=== PATIENT | female | born 1955 | race American Indian/Alaskan Native ===

== ENCOUNTER 2018-11-18 12:34 | Emergency (ER) | payer MEDICARE ==
--- NOTE | 2018-11-18 13:16 | Emergency Department Report ---
HPI - General Time Seen by Provider: 11/18/18 12:43 - HPI HPI: Room 10 The patient is a 62-year-old female presenting with a chief complaint of pelvis pain and suicidal ideation. The patient is very emotionally labile and difficult to obtain history from. Patient states she feels confused at times and thinks she is mixing up her medications. Patient also states she's had pe lvic pain intermittently for a long time. The patient admits to suicidal ideation for "a long time." When asked if she did anything to try to harm her self the patient states "I don't know." Location: [See above] Duration: [See above] Quality: [See above] Severity: [See above] Modifying factors: [see above] Context: [see above] Mode of transportation: [not driving] ED Past Medical Hx - Past Medical History Hx Hypertension: Yes Hx CVA: Yes Hx Diabetes: Yes Additional medical history: Coronary artery disease - Surgical History Past Surgical History?: No - Family History Family history: no significant - Social History Smoking Status: Never Smoker Substance Use Type: None (denies illicit drug use) ED Review of Systems ROS: Stated complaint: PELVIS PAIN/PSYCH Other details as noted in HPI Constitutional: no symptoms reported Eyes: denies: eye pain ENT: denies: throat pain Respiratory: no symptoms reported Cardiovascular: denies: chest pain Endocrine: no symptoms reported Gastrointestinal: abdominal pain Genitourinary: denies: dysuria Musculoskeletal: denies: back pain Neurological: denies: headache Physical Exam - Physical Exam Physical Exam: GENERAL: The patient is well-developed well-nourished female lying on stretcher emotionally labile. [] HEENT: Normocephalic. Atraumatic. Extraocular motions are intact. Patient has moist mucous membranes. NECK: Supple. Trachea midline CHEST/LUNGS: Clear to auscultation. There is no respiratory distress noted. HEART/CARDIOVASCULAR: Regular. There is no tachycardia. There is no gallop rub or murmur. ABDOMEN: Abdomen is soft, nontender. Patient has normal bowel sounds. There is no abdominal distention. SKIN: There is no rash. There is no edema. There is no diaphoresis. NEURO: The patient is awake, alert, and oriented. The patient is cooperative. The patient has no focal neurologic deficits. The patient has normal speech. Cranial nerves II-12 grossly intact, no drift MUSCULOSKELETAL: There is no evidence of acute injury. ED Medical Decision Making - Lab Data Result diagrams: 11/18/18 13:21 11/18/18 13:21 - Radiology Data Radiology results: report reviewed (CT head, CT abdomen pelvis), image reviewed (CT head, CT abdomen and pelvis) [address] [address] Cat Scan Report Signed Patient: KELVIN TINSLEY MR#: [id number] : 1955 Acct:[id number] Age/Sex: 62 / F ADM Date: 11/18/18 Loc: ED Attending Dr: Ordering Physician: TOYA SULLIVAN MD Date of Service: 11/18/18 Procedure(s): CT head/brain wo con Accession Number(s): [id number] cc: TOYA SULLIAVN MD CT HEAD WITHOUT CONTRAST: HISTORY: Confusion. TECHNIQUE: Sequential CT images without contrast. FINDINGS: Images obtained show bilateral prominence of the sulci and ventricles. There are no abnormal intra- or extra-axial blood or fluid collections. There are no focal masses or evidence of mass effect. The toure white matter differentiation appears within normal limits. Regions of periventricular decreased attenuation are consistent with microangiopathic ischemic disease. The posterior fossa structures including the fourth ventricle, cerebellum, and brainstem appear normal. IMPRESSION: Evidence of atrophy and microangiopathic ischemic disease. No acute intracranial process noted. Transcribed By: TTR Dictated By: MILKA BURGESS JR, MD Electronically Authenticated By: MILKA BUREGSS JR, MD Signed Date/Time: 11/18/181450 DD/ 50 TD/TT: 11/18/[address] [address] Cat Scan Report Signed Patient: KELVIN TINSLEY MR#: [id number] : 1955 Acct:[id number] Age/Sex: 62 / F ADM Date: 11/18/18 Loc: ED Attending Dr: Diony dorman Physician: TOYA SULLIVAN MD Date of Service: 11/18/18 Procedure(s): CT abdomen pelvis w con Accession Number(s): [id number] cc: TOYA SULLIVAN MD CT ABDOMEN PELVIS WITH CONTRAST: HISTORY: Lower abdominal pain. COMPARISON: none. TECHNIQUE: Helical CT in 1.25mm intervals following IV contrast. Sagittal and coronal reconstructions. FINDINGS: Lung bases: Normal. Liver: Normal. Biliary system: The gallbladder is contracted and contains a few calcified gallstones. No biliary dilatation is identified. Pancreas: Normal. Spleen: Normal. Kidneys/ureters/bladder: Within normal limits. 1 cm cyst in the superior left kidney is noted. Adrenal glands: 2 cm benign appearing left adrenal nodule is identified. The right adrenal gland is normal. Aorta: Mild distal calcifications. No aneurysm. Intestines: Within normal limits given no oral contrast was administered. Appendix: Normal. Pelvic viscera: Normal. Ascites: None. Adenopathy: None. Musculoskeletal: Intact. Mild thoracolumbar spondylosis. IMPRESSION: No acute process is identified in the abdomen or pelvis. Left renal cyst. Left adrenal nodule which probably represents an adrenal adenoma. Transcribed By: TTR Dictated By: MILKA BURGESS JR, MD Electronically Authenticated By: MILKA BURGESS JR, MD Signed Date/Time: 11/18/18 1501 DD/ 1458 TD/TT: 11/18/18 1501 - Differential Diagnosis UTI, diverticulitis, suicide ideation Critical care attestation.: If time is entered above; I have spent that time in minutes in the direct care of this critically ill patient, excluding procedure time. ED Disposition Clinical Impression: Suicidal ideation Disposition: DC/TX-65 PSY HOSP/PSY UNIT Is pt being admited?: No Does the pt Need Aspirin: No Condition: Stable Time of Disposition: 15:57 (awaiting acceptance)
[2018-11-18 13:47] LABS: Basophils # (Auto) 0.1 K/mm3 (0.0-0.1); Basophils % (Auto) 1.2 % (0.0-1.8); Eosinophils # (Auto) 0.1 K/mm3 (0.0-0.4); Eosinophils % (Auto) 0.8 % (0.0-4.3); Hematocrit 37.8 % (30.3-42.9); Hemoglobin 12.4 gm/dl (10.1-14.3); Lymphocytes # (Auto) 1.3 K/mm3 (1.2-5.4); Lymphocytes % (Auto) 18.4 % (13.4-35.0); Mean Corpuscular HGB Conc 33 % (30-34); Mean Corpuscular Volume 87 fl (79-97); Monocytes # (Auto) 0.7 K/mm3 (0.0-0.8); Monocytes % (Auto) 10.2 % (0.0-7.3); Platelet Count 374 K/mm3 (140-440); Red Blood Count 4.35 M/mm3 (3.65-5.03); Red Cell Distribution Width 14.1 % (13.2-15.2)
[2018-11-18 14:08] LABS: Alanine Aminotransferase 21 units/L (7-56); BUN/Creatinine Ratio 20; Blood Urea Nitrogen 14 mg/dL (7-17); Calcium 9.5 mg/dL (8.4-10.2); Hemolysis Index 10
[2018-11-18 14:15] LABS: Free T4 (Free Thyroxine) 1.22 ng/dL (0.76-1.46)
--- NOTE | 2018-11-18 14:54 | Cat Scan Report ---
CT HEAD WITHOUT CONTRAST: HISTORY: Confusion. TECHNIQUE: Sequential CT images without contrast. FINDINGS: Images obtained show bilateral prominence of the sulci and ventricles. There are no abnormal intra- or extra-axial blood or fluid collections. There are no focal masses or evidence of mass effect. The toure white matter differentiation appears within normal limits. Regions of periventricular decreased attenuation are consistent with microangiopathic ischemic disease. The posterior fossa structures including the fourth ventricle, cerebellum, and brainstem appear normal. IMPRESSION: Evidence of atrophy and microangiopathic ischemic disease. No acute intracranial process noted.
--- NOTE | 2018-11-18 15:04 | Cat Scan Report ---
CT ABDOMEN PELVIS WITH CONTRAST: HISTORY: Lower abdominal pain. COMPARISON: none. TECHNIQUE: Helical CT in 1.25mm intervals following IV contrast. Sagittal and coronal reconstructions. FINDINGS: Lung bases: Normal. Liver: Normal. Biliary system: The gallbladder is contracted and contains a few calcified gallstones. No biliary dilatation is identified. Pancreas: Normal. Spleen: Normal. Kidneys/ureters/bladder: Within normal limits. 1 cm cyst in the superior left kidney is noted. Adrenal glands: 2 cm benign appearing left adrenal nodule is identified. The right adrenal gland is normal. Aorta: Mild distal calcifications. No aneurysm. Intestines: Within normal limits given no oral contrast was administered. Appendix: Normal. Pelvic viscera: Normal. Ascites: None. Adenopathy: None. Musculoskeletal: Intact. Mild thoracolumbar spondylosis. IMPRESSION: No acute process is identified in the abdomen or pelvis. Left renal cyst. Left adrenal nodule which probably represents an adrenal adenoma.
[2018-11-18 16:00] LABS: Bilirubin,Urine NEG (Negative); Blood,Urine NEG (Negative); Color,Urine Yellow (Yellow); Mucus,Urine 1+ /HPF; Protein,Urine <15 mg/dL mg/dL (Negative); RBC,Urine < 1.0 /HPF (0.0-6.0); Urobilinogen,Urine < 2.0 mg/dL (<2.0)
[2018-11-18 16:10] LABS: Amphetamine Screen,Urine PRESUMPTIVE NEGATIVE; Benzodiazepines Screen,Urine PRESUMPTIVE NEGATIVE; Cannabinoid Screen,Urine PRESUMPTIVE NEGATIVE; Cocaine Screen,Urine PRESUMPTIVE NEGATIVE; Methadone Screen,Urine PRESUMPTIVE NEGATIVE; Opiate Screen,Urine PRESUMPTIVE NEGATIVE
[2018-11-18] MEDS ORDERED: ATIVAN PO PRN (17:28)
[2018-11-18] MEDS: GLUCOPHAGE PO SCH (21:59)
[2018-11-19] MEDS ORDERED: BABY ASPIRIN ONE (09:15)
[2018-11-19] MEDS ORDERED: TOPROL XL PO SCH (10:00)
[2018-11-19] MEDS: GLUCOPHAGE PO SCH (10:00)
[2018-11-19] MEDS ORDERED: NORVASC PO SCH (10:00)
[2018-11-19] MEDS ORDERED: PLAVIX PO SCH (10:00)
[2018-11-19] MEDS ORDERED: HALFPRIN EC PO SCH (10:00)
--- NOTE | 2018-11-19 11:23 | Consultation ---
History of Present Illness - Reason for Consult Consult date: 11/19/18 Reason for consult: Mental Health Evaluation Requesting physician: TOYA SULLIVAN - Chief Complaint Chief complaint: "I don't want to live like this" - History of Present Psychiatric Illness 62-year-old AA female presenting with a chief complaint of pelvis pain and suicidal ideation. Today the patient is anxious during the assessment. She stated that she is depressed/anxious about her life. She stated that her major issues is the amount of medication she take daily. She stated, "I don't want to take so many pills." She stated that her medical issues has exacerbated her depression/anxiety. She rate her depression/anxiety 7/10, with 10 being being the worse. She would not confirm or deny SI's when asked. She did state, 'I have no reason to live at this time. She stated that she has a PCP and reside at a custodial. Also, she stated that she do not have family support. She denies HI's and AVH's. She denies a poor appetite, but acknowledged erratic sleep. She denies recreational drug use and alcohol consumption (etoh). Medications and Allergies Allergies Allergy/AdvReac Type Severity Reaction Status Date / Time codeine Allergy Itching Verified 11/18/18 13:14 Home Medications Medication Instructions Recorded Confirmed Last Taken Type Aspirin [Aspir-Low] 81 mg PO DAILY 11/18/18 11/18/18 Unknown History Clopidogrel Bisulfate [Plavix] 75 mg PO DAILY 11/18/18 11/18/18 Unknown History Metoprolol Xl [Metoprolol 100 mg PO DAILY 11/18/18 11/18/18 Unknown History SUCCINATE ER TAB] amLODIPine [Norvasc] 10 mg PO DAILY 11/18/18 11/18/18 Unknown History hydrALAZINE [Apresoline TAB] 30 mg PO BID 11/18/18 11/18/18 Unknown History metFORMIN [Glucophage] 500 mg PO BID 11/18/18 11/18/18 Unknown History traZODone [Desyrel] 100 mg PO BID 11/18/18 11/18/18 Unknown History Active Meds: Active Medications Amlodipine Besylate (Norvasc) 10 mg PO DAILY [facility] Last Admin: 11/19/18 10:00 Dose: 10 mg Documented by: Aspirin (Halfprin Ec) 81 mg PO DAILY [facility] Last Admin: 11/19/18 10:00 Dose: 81 mg Documented by: Clopidogrel Bisulfate (Plavix) 75 mg PO DAILY [facility] Last Admin: 11/19/18 10:00 Dose: 75 mg Documented by: Lorazepam (Ativan) 1 mg PO Q8H PRN PRN Reason: Agitation Last Admin: 11/18/18 17:59 Dose: 1 mg Documented by: Metformin HCl (Glucophage) 500 mg PO BID [facility] Last Admin: 11/19/18 10:00 Dose: 500 mg Documented by: Metoprolol Succinate (Toprol Xl) 100 mg PO DAILY [facility] Last Admin: 11/19/18 10:00 Dose: 100 mg Documented by: Past psychiatric history - Past Medical History Past Medical History: hypertension, stroke Past Surgical History: Other (Stents) - past Psychiatric treatment and history psychiatric treatment history: Per the patient, she was seen by a psychiatrist in the outpatient settings. Denies a fam psy hx. - Social History Social history: other (Reside at a custodial) Mental Status Exam - Vital signs Last Vital Signs Temp 98.0 F 11/19/18 08:00 Pulse 64 11/19/18 10:00 Resp 18 11/19/18 08:00 BP 134/73 11/19/18 10:00 Pulse Ox 99 11/19/18 08:00 - Exam Narrative exam: MSE: Appearance: in a hospital gown Behavior: regular eye contact Speech: regular rate and tone Mood: anxious Affect: congruent to mood Thought Process: circumstantial Thought Content: denies HI's and AVH's Motor Activity: sitting up in bed Cognition: A/O x3 Insight: variable Judgment: variable Results Result Diagrams: 11/18/18 13:21 11/19/18 10:28 Abnormal lab results 11/18/18 11/18/18 11/18/18 Range/Units 13:21 13:21 13:21 [place] % (Auto) 10.2 H (0.0-7.3) % Glucose (65-100) mg/dL Ur Specific [place] (1.003-1.030) Salicylates < 0.3 L (2.8-20.0) mg/dL Acetaminophen < 5.0 L (10.0-30.0) ug/mL 11/18/18 11/19/18 Range/Units 15:29 10:28 [place] % (Auto) (0.0-7.3) % Glucose 132 H (65-100) mg/dL Ur Specific [place] 1.033 H (1.003-1.030) Salicylates (2.8-20.0) mg/dL Acetaminophen (10.0-30.0) ug/mL All other labs normal. Assessment and Plan Assessment and plan: Impression: MDD, Severe Type. Unspecified Anxiety DO. Today the patient is anxious during the assessment. DDx: R/O Bipolar DO Recommendation/Plan: Continue 1013 and start Remeron 15 mg PO HS for depression/anxiety and Buspar 7.5 mg PO BID for anxiety. Discussed possible suicidality/medication induced deandra with the patient reference Remeron. Dispo: The patient was referred to inpatient psy services. Staffed with Dr Caba.
[2018-11-19] MEDS ORDERED: BUSPAR PO SCH (12:00)
[2018-11-19 20:40] VITALS: BP 133/64
[2018-11-19] MEDS ORDERED: REMERON PO SCH (22:00)
== END 2018-11-19 19:05 ==
LOC: EEVIPCON 12:34 → ED 12:34
DX: F32.9 Major depressive disorder, single episode, unspecified (principal); F41.9 Anxiety disorder, unspecified; I10 Essential (primary) hypertension; I25.10 Atherosclerotic heart disease of native coronary artery without angina pectoris; E11.9 Type 2 diabetes mellitus without complications; Z86.73 Personal history of transient ischemic attack (TIA), and cerebral infarction without residual deficits; Z88.4 Allergy status to anesthetic agent
CPT/HCPCS: 36415; 70450; 74177; 80053; 80307; 81001; 82947; 82962; 84439; 84443; 85025; 99285; G0480; Q9967; 80320